=== PATIENT | male | born 1980 | race Caucasian/White ===

== ENCOUNTER 2017-11-29 03:34 | Emergency (ER) | payer SELFPAY ==
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
[2017-11-29 03:52] VITALS: BP 138/82; PULSE 87; RESP 24; TEMP 98.2; O2SAT 98
[2017-11-29 04:01] LABS: CHLORIDE 104 MEQ/L (98-107); SODIUM (NA) 138 MEQ/L (136-145)
[2017-11-29 04:04] LABS: AUTOMATED NEUTROPHIL # 7.1 TH/MM3 (1.8-7.7); BASOPHIL # 0.1 TH/MM3 (0-0.2); BASOPHIL % 0.5 % (0.0-2.0); CALCIUM 8.7 MG/DL (8.5-10.1); EOSINOPHIL # 0.3 TH/MM3 (0-0.4); HEMATOCRIT 44.9 % (39.0-51.0); HEMOGLOBIN 15.7 GM/DL (13.0-17.0); LYMPH % 24.5 % (9.0-44.0); LYMPHOCYTE # 2.6 TH/MM3 (1.0-4.8); MEAN CORPUSCULAR HEMOGLOBIN 30.8 PG (27.0-34.0); MEAN PLATELET VOLUME 7.6 FL (7.0-11.0); MONO % 6.4 % (0.0-8.0); MONOCYTE # 0.7 TH/MM3 (0-0.9); NEUT % 65.6 % (16.0-70.0); PLATELET COUNT 285 TH/MM3 (150-450); RED CELL DISTRIBUTION WIDTH 13.8 % (11.6-17.2); WHITE BLOOD COUNT 10.8 TH/MM3 (4.0-11.0)
[2017-11-29 04:05] LABS: BICARBONATE 27.2 MEQ/L (21.0-32.0); BLOOD UREA NITROGEN 16 MG/DL (7-18); GLUCOSE,RANDOM 131 MG/DL (74-106)
[2017-11-29 04:08] LABS: ALT (GPT) 39 U/L (12-78); AST (GOT) 29 U/L (15-37); GLOMERULAR FILTRATION RATE 75 ML/MIN (>89)
[2017-11-29 04:09] LABS: TOTAL BILIRUBIN ADULT 0.2 MG/DL (0.2-1.0); TOTAL PROTEIN 8.3 GM/DL (6.4-8.2)
[2017-11-29 04:10] LABS: ALKALINE PHOSPHATASE 94 U/L (45-117)
[2017-11-29 04:11] VITALS: BP 132/65; PULSE 76; RESP 20; O2SAT 98
[2017-11-29 04:13] LABS: TROPONIN I LESS THAN 0.02 NG/ML (0.02-0.05)
[2017-11-29] MEDS ORDERED: IBUP1TAB7 PO (04:19)
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
[2017-11-29] MEDS ORDERED: IPRA17I INH (05:04)
[2017-11-29] MEDS ORDERED: VENTAER INH (05:04)
[2017-11-29 05:11] VITALS: BP 112/65; PULSE 76; RESP 20; O2SAT 96
[2017-11-29] MEDS ORDERED: RESP: ALBUTEROL 2.5 MG/IPRATROPIUM 0.5 MG NEB (SCH) NEB ONE (05:15)
[2017-11-29] MEDS ORDERED: PRED50 PO (05:32)
[2017-11-29] MEDS ORDERED: NEBULIZER1 MI1 NEB (05:50)
[2017-11-29] MEDS ORDERED: ALBU.5I NEB (05:51)
[2017-11-29 05:56] VITALS: BP 124/64
--- NOTE | 2017-11-29 10:46 | EKG ---
Date Performed: 11/29/2017 Time Performed: 03:42:42 PTAGE: 37 years EKG: Sinus rhythm NORMAL ECG INTERPRETATION BASED ON A DEFAULT AGE OF 40 YEARS NO PREVIOUS TRACING DOCTOR: Chandler Velasquez Interpretating Date/Time 11/29/2017 10:45:02
== END 2017-11-29 06:01 | disposition home or self-care (01) ==
LOC: PHED 03:34
DX: J45.909 Unspecified asthma, uncomplicated (principal)
CPT/HCPCS: 71250; 80053; 82550; 82552; 83690; 84484; 85025; 87804; 93005; 94664; 99285